=== PATIENT | male | born 1935 | race Caucasian/White ===

== ENCOUNTER 2017-11-02 11:35 | Inpatient (IN) | payer OTHER ==
[~2017-11-02] VITALS: Ht 165.1 cm; Wt 49.9 kg
[~2017-11-02 11:35] MED LIST: ASA PO; CIPRO500 MG PO; CLOPIDOGREL BIS75 MG PO; COREG CR10 MG; Coreg 3.125MG TABLET PO; Coreg PO; Cozaar PO; DIOVAN HCT 320/1 TA2; GLIMEPIRIDE4 MG; JANUVIA100 MG; LANOXIN125 MCG PO; METFORMIN HCL1000 MG; NORVASC 5MG TAB PO; Namenda PO; PLAVIX 75MG PO; SIMVASTATIN20 MG PO; VASOTEC10 MG; ZOCOR PO; ZOCOR20 MG; ZOLOFT50 MG PO
[2017-11-02] MEDS ORDERED: RIVASTIGMINE1.5 MG (11:50)
[2017-11-02] MEDS ORDERED: XANAX XR0.5 MG (11:50)
== END 2017-11-03 14:17 | disposition home or self-care (01) | DRG 639 ==
LOC: ER 11:35 → SEC-K 15:18 → SURH 16:48
PROC: 4A033R1 Measurement of Arterial Saturation, Peripheral, Percutaneous Approach (ICD-10-PCS; principal; 2017-11-02)
PROC: 8E0ZXY6 Isolation (ICD-10-PCS; 2017-11-02)
DX: E11.649 Type 2 diabetes mellitus with hypoglycemia without coma (principal); E11.65 Type 2 diabetes mellitus with hyperglycemia; J10.1 Influenza due to other identified influenza virus with other respiratory manifestations

== ENCOUNTER 2017-11-04 21:22 | Inpatient (IN) | payer OTHER ==
[~2017-11-04] VITALS: Ht 170.2 cm; Wt 72.6 kg
[~2017-11-04 21:22] MED LIST changes: +RIVASTIGMINE1.5 MG; +XANAX XR0.5 MG
[2017-11-18] MEDS ORDERED: TOPROL XL25 M1 PO (09:46)
[2017-11-18] MEDS ORDERED: TRAZODONE HCL50 MG PO (09:46)
[2017-11-19] MEDS ORDERED: DOXYCYCLINE HY100 M2 PO (09:32)
== END 2017-11-19 18:16 | disposition other institution (70) | DRG 207 ==
LOC: ER 21:22 → ICU 11-05 00:23 → SURH 11-11 16:18 → ICU 11-11 16:25 → SURH 11-11 18:17
PROC: 5A1955Z Respiratory Ventilation, Greater than 96 Consecutive Hours (ICD-10-PCS; principal; 2017-11-05)
PROC: 0BH17EZ Insertion of Endotracheal Airway into Trachea, Via Natural or Artificial Opening (ICD-10-PCS; 2017-11-05)
PROC: 4A033R1 Measurement of Arterial Saturation, Peripheral, Percutaneous Approach (ICD-10-PCS; 2017-11-05)
PROC: 3E0F7GC Introduction of Other Therapeutic Substance into Respiratory Tract, Via Natural or Artificial Opening (ICD-10-PCS; 2017-11-05)
PROC: B54DZZZ Ultrasonography of Bilateral Lower Extremity Veins (ICD-10-PCS; 2017-11-05)
PROC: BW24ZZZ Computerized Tomography (CT Scan) of Chest and Abdomen (ICD-10-PCS; 2017-11-05)
PROC: B246ZZZ Ultrasonography of Right and Left Heart (ICD-10-PCS; 2017-11-05)
PROC: 0DH63UZ Insertion of Feeding Device into Stomach, Percutaneous Approach (ICD-10-PCS; 2017-11-17)
DX: J10.08 Influenza due to other identified influenza virus with other specified pneumonia (principal); J96.01 Acute respiratory failure with hypoxia; I50.23 Acute on chronic systolic (congestive) heart failure; A41.9 Sepsis, unspecified organism; R65.20 Severe sepsis without septic shock; N17.8 Other acute kidney failure; I69.354 Hemiplegia and hemiparesis following cerebral infarction affecting left non-dominant side; I13.0 Hypertensive heart and chronic kidney disease with heart failure and stage 1 through stage 4 chronic kidney disease, or unspecified chronic kidney disease; E87.0 Hyperosmolality and hypernatremia; B37.0 Candidal stomatitis; E46 Unspecified protein-calorie malnutrition; J69.0 Pneumonitis due to inhalation of food and vomit; Z74.01 Bed confinement status; G30.8 Other Alzheimer's disease; F02.80 Dementia in other diseases classified elsewhere, unspecified severity, without behavioral disturbance, psychotic disturbance, mood disturbance, and anxiety; N40.1 Benign prostatic hyperplasia with lower urinary tract symptoms; R33.8 Other retention of urine; E11.22 Type 2 diabetes mellitus with diabetic chronic kidney disease; E11.65 Type 2 diabetes mellitus with hyperglycemia; N18.1 Chronic kidney disease, stage 1; B95.62 Methicillin resistant Staphylococcus aureus infection as the cause of diseases classified elsewhere; J04.10 Acute tracheitis without obstruction; R13.19 Other dysphagia; G47.09 Other insomnia; D64.89 Other specified anemias; L89.322 Pressure ulcer of left buttock, stage 2; L89.312 Pressure ulcer of right buttock, stage 2; Z78.1 Physical restraint status